=== PATIENT | female | born 1995 | race American Indian/Alaskan Native ===

== ENCOUNTER 2020-01-12 15:39 | Emergency (ER) | payer SELFPAY ==
[2020-01-12 15:53] VITALS: BP 147/77
--- NOTE | 2020-01-12 15:56 | Event Note ---
ED Screening Note Date of service: 01/12/20 Time: 15:51 ED Screening Note: 24 y o female presents to ED cc of generalized itching worsening x was given benadrl and a shot of Sterpids at pcp on saturday This initial assessment/diagnostic orders/clinical plan/treatment(s) is/are subject to change based on patients health status, clinical progression and re- assessment by fellow clinical providers in the ED. Further treatment and workup at subsequent clinical providers discretion. Patient/guardian urged not to elope from the ED as their condition may be serious if not clinically assessed and managed. Initial orders include: iv f, iv solumedrol hydroxizine acc eval
[2020-01-12] MEDS ORDERED: SODIUM CHLORIDE 0.9% 1000 ML 1,000 ML IV ONE (17:11)
[2020-01-12] MEDS ORDERED: methylPREDNISolone Sod Succinate 125 MG/2 ML INJ IV ONE (17:11)
[2020-01-12] MEDS ORDERED: diphenhydrAMINE 50 MG/ML VIAL IV STA (17:11)
[2020-01-12] MEDS ORDERED: FAMOTIDINE 20 MG/2 ML INJ IV ONE (17:12)
--- NOTE | 2020-01-12 17:25 | Emergency Department Report ---
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 A few hours after doing so she began to develop a pruritic rash and was diagnosed with a allergic reaction by the company physician. She states that she was prescribed a cream but states that her condition is continue to progressively worsening since the onset. She reports a diffuse spread of burning and pruritus and hive-like rash to the torso and extremities she reports no wheezing or shortness of breath. No chest pain or palpitation no nausea vomiting. Symptoms: rash, itching Severity: mild Treatment Prior to Arrival: none, steroids Previous Allergy History: none - Related Data Previous Rx's Medication Instructions Recorded Last Taken Type Famotidine [Pepcid] 40 mg PO QHS #10 tablet 01/12/20 Unknown Rx hydrOXYzine HCL [Atarax] 25 mg PO Q6HR PRN #20 tablet 01/12/20 Unknown Rx predniSONE [Deltasone] 20 mg PO QDAY #7 tab 01/12/20 Unknown Rx Allergies Allergy/AdvReac Type Severity Reaction Status Date / Time No Known Allergies Allergy Unverified 01/12/20 15:43 ED Review of Systems ROS: Stated complaint: ALLERGIC REACTION Other details as noted in HPI Comment: All other systems reviewed and negative ED Past Medical Hx - Past Medical History Previous Medical History?: Yes Additional medical history: Lupus - Surgical History Past Surgical History?: No - Medications Home Medications: Home Medications Medication Instructions Recorded Confirmed Last Taken Type Famotidine [Pepcid] 40 mg PO QHS #10 tablet 01/12/20 Unknown Rx hydrOXYzine HCL [Atarax] 25 mg PO Q6HR PRN #20 tablet 01/12/20 Unknown Rx predniSONE [Deltasone] 20 mg PO QDAY #7 tab 01/12/20 Unknown Rx ED Physical Exam - General Limitations: No Limitations General appearance: alert, in no apparent distress - Head Head exam: Present: atraumatic, normocephalic - Eye Eye exam: Present: normal appearance, PERRL, EOMI Pupils: Present: normal accommodation - ENT ENT exam: Present: normal exam, normal orophraynx, mucous membranes moist, TM's normal bilaterally - Neck Neck exam: Present: normal inspection, full ROM - Respiratory Respiratory exam: Present: normal lung sounds bilaterally. Absent: respiratory distress, wheezes, rales, chest wall tenderness, accessory muscle use - Cardiovascular Cardiovascular Exam: Present: regular rate, normal rhythm, normal heart sounds. Absent: systolic murmur, diastolic murmur, rubs, gallop - GI/Abdominal GI/Abdominal exam: Present: soft, normal bowel sounds - Extremities Exam Extremities exam: Present: normal inspection, full ROM, normal capillary refill - Back Exam Back exam: Present: normal inspection. Absent: CVA tenderness (R), CVA tenderness (L) - Neurological Exam Neurological exam: Present: alert, oriented X3, CN II-XII intact, normal gait - Psychiatric Psychiatric exam: Present: normal affect, normal mood. Absent: anxious, flat affect - Skin Skin exam: Present: warm, dry, intact, normal color. Absent: rash ED Course Vital Signs 01/12/20 15:52 Temperature 98.0 F Pulse Rate 111 H Respiratory 18 Rate Blood Pressure 147/77 O2 Sat by Pulse 96 Oximetry Critical care attestation.: If time is entered above; I have spent that time in minutes in the direct care of this critically ill patient, excluding procedure time. ED Disposition Clinical Impression: Allergic reaction Disposition: DC-01 TO HOME OR SELFCARE Is pt being admited?: No Does the pt Need Aspirin: No Condition: Stable Instructions: Urticaria (ED), Allergies (ED) Prescriptions: hydrOXYzine HCL [Atarax] 25 mg PO Q6HR PRN #20 tablet PRN Reason: Itching predniSONE [Deltasone] 20 mg PO QDAY #7 tab Famotidine [Pepcid] 40 mg PO QHS #10 tablet Referrals: [facility] [Provider Group] - 3-5 Days Forms: Work/School Release Form(ED)
== END 2020-01-12 18:16 | disposition home or self-care (01) ==
LOC: ED 15:39
DX: T78.40XA Allergy, unspecified, initial encounter (principal); X58.XXXA Exposure to other specified factors, initial encounter
CPT/HCPCS: 96374; 96375; 99282; J1200; J2930; J7030

== ENCOUNTER 2020-01-31 20:35 | Emergency (ER) | payer SELFPAY ==
[2020-01-31 21:20] VITALS: BP 97/65
--- NOTE | 2020-01-31 21:26 | Emergency Department Report ---
HPI - General Chief Complaint: Skin Rash Time Seen by Provider: 01/31/20 21:22 - HPI HPI: This is a 24-year-old female here reports that she has allergic reaction. She reports that she is itching all over and she was here this month and he gave her steroid and Atarax and it works. She says she is worried because she has lupus. Patient reports that she called [facility] to schedule an appointment but they are not seeing anyone right now. Denies any nausea vomiting or diarrhea. Denies any upper respiratory symptoms. Denies any fever or chills. Denies any abdominal or back pain. She said she knows she has needs allergy test because she thinks she is allergic to some type of food but she is not sure what. Pain is 0 out of 10 and she says she took Benadryl. ED Past Medical Hx - Past Medical History Previous Medical History?: Yes Additional medical history: Lupus - Surgical History Past Surgical History?: No - Family History Family history: hypertension - Social History Smoking Status: Never Smoker Substance Use Type: None - Medications Home Medications: Home Medications Medication Instructions Recorded Confirmed Last Taken Type Famotidine [Pepcid] 40 mg PO QHS #10 tablet 01/12/20 Unknown Rx hydrOXYzine HCL [Atarax] 25 mg PO Q6HR PRN #20 tablet 01/12/20 Unknown Rx predniSONE [Deltasone] 20 mg PO QDAY #7 tab 01/12/20 Unknown Rx Prednisone [predniSONE 10 mg 10 mg PO .TAPER 6 Days #1 tab.ds.pk 01/31/20 Unknown Rx (6-Day Pack, 21 Tabs)] ED Review of Systems ROS: Stated complaint: ALLERGIC REACTION Other details as noted in HPI Constitutional: denies: chills, fever, weakness Eyes: denies: eye pain, eye discharge ENT: denies: ear pain, throat pain, congestion Respiratory: denies: cough, shortness of breath, SOB with exertion, SOB at rest, stridor, wheezing Cardiovascular: denies: chest pain, palpitations, dyspnea on exertion, edema, syncope Gastrointestinal: denies: abdominal pain, nausea, vomiting, diarrhea, constipation, hematemesis, hematochezia Genitourinary: denies: dysuria, hematuria Musculoskeletal: denies: back pain Skin: pruritus. denies: rash Neurological: denies: headache, numbness, paresthesias, abnormal gait, vertigo Physical Exam - Physical Exam Vital Signs: Vital Signs 01/31/20 21:05 Temperature 98.7 F Pulse Rate 98 H Respiratory 18 Rate Blood Pressure 97/65 [Right] O2 Sat by Pulse 98 Oximetry General: This is a 24-year-old female well-nourished well-developed in no acute distress and nontoxic in appearance Physical Exam: Head: Normocephalic atraumatic. Mouth: Oral mucosa moist, tongue is normal, uvula is midline, no RESEARCH COMPLIANCE SPECIALIST or drooling, oral airways patent and uvula is Lungs: Clear to auscultated bilaterally, no rhonchi wheezes or rales. No use o f accessory muscles. Neck: Supple, no tracheal deviation. No C-spine tenderness and full range of motion. Negative stridor and negative crepitus CV: S1, S2. Regular rate Abdomen: Nontender to palpate in all quadrants, normal bowel sounds in all quadrants. No distention. Eyes: Bilateral pupils equal and reactive to light, conjunctival injection or icterus. Bilateral EOM intact and normal accommodation. Lids are normal. No swelling noted. Face: Exam except for rash. No bony abnormality noted Skin: Patient with areas 2 face bilaterally with dry scaly, no erythema or swelling noted. No drainage or indurated area. Extremity: No cce. + 2 pulses in all extremities, no neurovascular compromise. Mood: Normal mood and behavior Neurological: No focal neurological deficit. She is able to ambulate without any difficulties. Normal gait, speech is clear fluid, she is alert and oriented 3, no motor or sensory deficits. Normal strength all extremities and normal reflexes. Negative Romberg and negative pronator drift Back: Nontender to palpate to vertebral spine from C-spine to L-spine including sacral area. No paraspinal tenderness and no CVA tenderness. No rash noted. ED Course Vital Signs 01/31/20 21:05 Temperature 98.7 F Pulse Rate 98 H Respiratory 18 Rate Blood Pressure 97/65 [Right] O2 Sat by Pulse 98 Oximetry - Reevaluation(s) Reevaluation #1: 01/31/20 22:07 Patient received Decadron 10 mg IM in emergency room which helped her itching Critical care attestation.: If time is entered above; I have spent that time in minutes in the direct care of this critically ill patient, excluding procedure time. ED Disposition Clinical Impression: Pruritus Disposition: DC-01 TO HOME OR SELFCARE Is pt being admited?: No Does the pt Need Aspirin: No Condition: Stable Instructions: Itchy Skin (ED) Additional Instructions: Please follow-up with [facility] as previously recommended. Follow-up with your primary care physician in 2 to 3 days. If you do not have a primary care physician see primary care referral on discharge instruction paperwork Take medication as prescribed. If you develop shortness of breath, sore throat, chest pain, cough, fever and or chills, nausea vomiting or diarrhea you can return to the emergency room otherwise follow-up with your primary care Prescriptions: Prednisone [predniSONE 10 mg (6-Day Pack, 21 Tabs)] 10 mg PO .TAPER 6 Days #1 tab.ds.pk Referrals: Follow-up, [facility] [Other] - 2-3 Days Forms: Work/School Release Form(ED)
[2020-01-31] MEDS ORDERED: dexAMETHasone 4 MG/ML VIAL IM STA (21:27)
== END 2020-01-31 22:40 | disposition home or self-care (01) ==
LOC: ED 20:35
DX: L29.9 Pruritus, unspecified (principal)
CPT/HCPCS: 96372; 99282; J1100

== ENCOUNTER 2021-04-09 07:11 | Emergency (ER) | payer SELFPAY ==
[2021-04-09 08:02] VITALS: BP 111/76
--- NOTE | 2021-04-09 08:35 | Emergency Department Report ---
ED General Adult HPI - General Chief complaint: Allergic Reaction Stated complaint: ALLERGIC REACTION Time Seen by Provider: 04/09/21 08:28 Source: patient Mode of arrival: Ambulatory Limitations: No Limitations - History of Present Illness Initial comments: 25-year-old -[place] female patient presents with complaints of diffuse itching and rash for the past few days. Patient states she believes she is having allergic reaction to a new dog that she has. Patient reports she was seen at an urgent care yesterday and prescribed triamcinolone ointment. She states this is helping some with the rash, however the itching has not improved. She denies any fever/chills/sweats, dysphagia, shortness of breath/wheezing, or chest pain. Patient states she is also taken Benadryl without relief - Related Data Previous Rx's Medication Instructions Recorded Last Taken Type Famotidine [Pepcid] 40 mg PO QHS #10 tablet 01/12/20 Unknown Rx hydrOXYzine HCL [Atarax] 25 mg PO Q6HR PRN #20 tablet 01/12/20 Unknown Rx predniSONE [Deltasone] 20 mg PO QDAY #7 tab 01/12/20 Unknown Rx Prednisone [predniSONE 10 mg 10 mg PO .TAPER 6 Days #1 tab.ds.pk 01/31/20 Unknown Rx (6-Day Pack, 21 Tabs)] Prednisone [predniSONE 10 mg 10 mg PO .TAPER #1 tab.ds.pk 04/09/21 Unknown Rx (6-Day Pack, 21 Tabs)] hydrOXYzine PAMOATE [Vistaril] 25 mg PO Q6HR PRN #20 capsule 04/09/21 Unknown Rx Allergies Allergy/AdvReac Type Severity Reaction Status Date / Time No Known Allergies Allergy Unverified 01/31/20 20:45 ED Review of Systems ROS: Stated complaint: ALLERGIC REACTION Other details as noted in HPI Constitutional: denies: diaphoresis, fever, malaise Respiratory: denies: cough, shortness of breath Cardiovascular: denies: chest pain Gastrointestinal: denies: abdominal pain, nausea, vomiting Skin: rash, pruritus ED Past Medical Hx - Past Medical History Previous Medical History?: Yes Additional medical history: Lupus, Allergic reaction - Surgical History Past Surgical History?: No - Social History Smoking Status: Never Smoker Substance Use Type: Alcohol - Medications Home Medications: Home Medications Medication Instructions Recorded Confirmed Last Taken Type Famotidine [Pepcid] 40 mg PO QHS #10 tablet 01/12/20 Unknown Rx hydrOXYzine HCL [Atarax] 25 mg PO Q6HR PRN #20 tablet 01/12/20 Unknown Rx predniSONE [Deltasone] 20 mg PO QDAY #7 tab 01/12/20 Unknown Rx Prednisone [predniSONE 10 mg 10 mg PO .TAPER 6 Days #1 tab.ds.pk 01/31/20 Unknown Rx (6-Day Pack, 21 Tabs)] Prednisone [predniSONE 10 mg 10 mg PO .TAPER #1 tab.ds.pk 04/09/21 Unknown Rx (6-Day Pack, 21 Tabs)] hydrOXYzine PAMOATE [Vistaril] 25 mg PO Q6HR PRN #20 capsule 04/09/21 Unknown Rx ED Physical Exam - General Limitations: No Limitations General appearance: alert, in no apparent distress - Head Head exam: Present: atraumatic, normocephalic - Eye Eye exam: Present: normal appearance - Neck Neck exam: Present: normal inspection - Respiratory Respiratory exam: Present: normal lung sounds bilaterally. Absent: respiratory distress - Cardiovascular Cardiovascular Exam: Present: regular rate, normal rhythm - Neurological Exam Neurological exam: Present: alert, oriented X3 - Psychiatric Psychiatric exam: Present: normal affect, normal mood - Skin Skin exam: Present: warm, dry, intact, normal color, urticaria (Diffuse noted over legs and arm). Absent: cyanosis, diaphoretic, pallor, ecchymosis ED Course Vital Signs 04/09/21 07:59 Temperature 98.8 F Pulse Rate 92 H Respiratory 20 Rate Blood Pressure 111/76 O2 Sat by Pulse 98 Oximetry ED Medical Decision Making - Medical Decision Making 25-year-old -[place] female patient presents with complaints of diffuse itching and rash for the past few days. Patient states she believes she is having allergic reaction to a new dog that she has. Patient reports she was seen at an urgent care yesterday and prescribed triamcinolone ointment. She s tates this is helping some with the rash, however the itching has not improved. She denies any fever/chills/sweats, dysphagia, shortness of breath/wheezing, or chest pain. Patient states she is also taken Benadryl without relief Urticarial rash noted on exam. Patient is stable for discharge home with prescription for Vistaril and prednisone. Recommend follow-up with primary care in 3 to 5 days. Discussed signs and symptoms that should prompt immediate return to the emergency department in detail patient verbalized understanding Critical care attestation.: If time is entered above; I have spent that time in minutes in the direct care of this critically ill patient, excluding procedure time. ED Disposition Clinical Impression: Allergic reaction Disposition: DC- TO HOME OR SELFCARE Is pt being admited?: No Condition: Stable Instructions: Allergies, Adult, Contact Dermatitis Prescriptions: Prednisone [predniSONE 10 mg (6-Day Pack, 21 Tabs)] 10 mg PO .TAPER #1 tab.ds.pk hydrOXYzine PAMOATE [Vistaril] 25 mg PO Q6HR PRN #20 capsule PRN Reason: itching Referrals: [facility] [Provider Group] - 3-5 Days
== END 2021-04-09 09:10 | disposition home or self-care (01) ==
LOC: ED 07:11
DX: T78.40XA Allergy, unspecified, initial encounter (principal); Z72.89 Other problems related to lifestyle; Z79.899 Other long term (current) drug therapy; X58.XXXA Exposure to other specified factors, initial encounter
CPT/HCPCS: 99282

== ENCOUNTER 2021-06-24 12:15 | Emergency (ER) | payer SELFPAY ==
[2021-06-24 14:26] VITALS: BP 123/80
--- NOTE | 2021-06-24 17:17 | Emergency Department Report ---
- General Chief Complaint: Dyspnea/Respdistress Stated Complaint: SINUS INFECTION Time Seen by Provider: 06/24/21 17:13 Source: patient Mode of arrival: Ambulatory Limitations: No Limitations - History of Present Illness Initial Comments: Patient is 26-year-old female with no significant past medical history. Patient presented to the ER with a 1 month history of sinus pain, congestion and cough. Patient is also complaining of headache and ear problem. Patient denied any fever or chills. Patient stated that she had a COVID-19 test and it was negative. Patient denied any nausea or vomiting. MD Complaint: cough, rhinorrhea, nasal congestion, sinus pain - Related Data Previous Rx's Medication Instructions Recorded Last Taken Type Famotidine [Pepcid] 40 mg PO QHS #10 tablet 01/12/20 Unknown Rx hydrOXYzine HCL [Atarax] 25 mg PO Q6HR PRN #20 tablet 01/12/20 Unknown Rx predniSONE [Deltasone] 20 mg PO QDAY #7 tab 01/12/20 Unknown Rx Prednisone [predniSONE 10 mg 10 mg PO .TAPER 6 Days #1 tab.ds.pk 01/31/20 Unknown Rx (6-Day Pack, 21 Tabs)] Prednisone [predniSONE 10 mg 10 mg PO .TAPER #1 tab.ds.pk 04/09/21 Unknown Rx (6-Day Pack, 21 Tabs)] hydrOXYzine PAMOATE [Vistaril] 25 mg PO Q6HR PRN #20 capsule 04/09/21 Unknown Rx Allergies Allergy/AdvReac Type Severity Reaction Status Date / Time No Known Allergies Allergy Unverified 01/31/20 20:45 ED Review of Systems ROS: Stated complaint: SINUS INFECTION Other details as noted in HPI Comment: All other systems reviewed and negative Constitutional: denies: chills, fever ENT: throat pain, congestion Respiratory: cough. denies: shortness of breath, SOB with exertion, wheezing Cardiovascular: denies: chest pain, palpitations, dyspnea on exertion Genitourinary: denies: urgency, dysuria Neurological: denies: headache, weakness, numbness, paresthesias, confusion ED Past Medical Hx - Past Medical History Additional medical history: Lupus, Allergic reaction - Social History Smoking Status: Never Smoker Substance Use Type: Alcohol - Medications Home Medications: Home Medications Medication Instructions Recorded Confirmed Last Taken Type Famotidine [Pepcid] 40 mg PO QHS #10 tablet 01/12/20 Unknown Rx hydrOXYzine HCL [Atarax] 25 mg PO Q6HR PRN #20 tablet 01/12/20 Unknown Rx predniSONE [Deltasone] 20 mg PO QDAY #7 tab 01/12/20 Unknown Rx Prednisone [predniSONE 10 mg 10 mg PO .TAPER 6 Days #1 tab.ds.pk 01/31/20 Unknown Rx (6-Day Pack, 21 Tabs)] Prednisone [predniSONE 10 mg 10 mg PO .TAPER #1 tab.ds.pk 04/09/21 Unknown Rx (6-Day Pack, 21 Tabs)] hydrOXYzine PAMOATE [Vistaril] 25 mg PO Q6HR PRN #20 capsule 04/09/21 Unknown Rx ED Physical Exam - General Limitations: No Limitations General appearance: alert, in no apparent distress - Head Head exam: Present: atraumatic, normocephalic, normal inspection - Eye Eye exam: Present: normal appearance, PERRL - ENT ENT exam: Present: mucous membranes moist, other (Right ethmoid and frontal sinus tenderness.) - Neck Neck exam: Present: normal inspection, full ROM. Absent: tenderness, meningismus - Respiratory Respiratory exam: Present: normal lung sounds bilaterally - Cardiovascular Cardiovascular Exam: Present: regular rate, normal rhythm, normal heart sounds - GI/Abdominal GI/Abdominal exam: Present: soft, normal bowel sounds. Absent: distended, tenderness, guarding, rebound, rigid - Extremities Exam Extremities exam: Present: normal inspection, full ROM, normal capillary refill. Absent: tenderness - Back Exam Back exam: Present: normal inspection, full ROM. Absent: CVA tenderness (R), CVA tenderness (L) - Neurological Exam Neurological exam: Present: alert, oriented X3, CN II-XII intact, normal gait, reflexes normal - Psychiatric Psychiatric exam: Present: normal mood - Skin Skin exam: Present: warm, intact, normal color ED Course Vital Signs 06/24/21 14:25 Temperature 98.6 F Pulse Rate 78 Respiratory 17 Rate Blood Pressure 123/80 [Right] O2 Sat by Pulse 99 Oximetry Critical care attestation.: If time is entered above; I have spent that time in minutes in the direct care of this critically ill patient, excluding procedure time. ED Disposition Clinical Impression: Acute sinusitis Disposition: HOME / SELF CARE / HOMELESS Is pt being admited?: No Condition: Stable Instructions: Sinusitis, Adult, [id number] Referrals: PRIMARY CARE,MD [Primary Care Provider] - 3-5 Days Forms: Work/School Release Form(ED)
== END 2021-06-27 06:05 | disposition home or self-care (01) ==
LOC: ED 12:15
DX: J01.90 Acute sinusitis, unspecified (principal); Z79.899 Other long term (current) drug therapy
CPT/HCPCS: 99281